=== PATIENT | male | born 1980 | race African-American/Black ===

== ENCOUNTER 2022-04-26 23:27 | Emergency (ER) | payer MEDICAID ==
[~2022-04-26] VITALS: Ht 170.2 cm; Wt 88.6 kg
[~2022-04-26 23:27] MED LIST: BISM-64 PO; OMEP20TA43 PO
[2022-04-26] MEDS ORDERED: fentaNYL/PF 50MCG/1 ML 2ML syringe IV ONE (23:35)
[2022-04-26] MEDS ORDERED: propofol 10mg/ml 20ml vial IV ONE (23:35)
[2022-04-27] MEDS ORDERED: ondansetron/PF 4mg/2ml inj IV ONE
[2022-04-27] MEDS ORDERED: HYDR-3965 PO ×2 (00:20→01:18)
[2022-04-27 00:51] VITALS: BP 131/90
== END 2022-04-27 01:26 | disposition home or self-care (01) ==
LOC: ER 23:27
DX: S82.841A Displaced bimalleolar fracture of right lower leg, initial encounter for closed fracture (principal); S93.04XA Dislocation of right ankle joint, initial encounter; J45.909 Unspecified asthma, uncomplicated; F12.90 Cannabis use, unspecified, uncomplicated; Z72.89 Other problems related to lifestyle; Z79.899 Other long term (current) drug therapy; Y08.89XA Assault by other specified means, initial encounter; Y93.89 Activity, other specified; Y92.89 Other specified places as the place of occurrence of the external cause; Y99.8 Other external cause status
CPT/HCPCS: 27810; 73600; 99285; J3010; 94760; 99152

== ENCOUNTER 2023-01-09 05:25 | Emergency (ER) | payer MEDICAID ==
--- NOTE | 2023-01-09 05:50 | NUR ---
ATTMEPTD TO CALL PT TO BE TRIAGED. PT NOT IN LOBBY. PT SEENON SECURTIRY CAMERA PICKING UP BELONGINGS AND SCOOTER AND LEAVING OUT OF THE LOBBY. PT AMBULATED WITH EVEN, STEADY GAIT WHILE PUSHING SCOOTER ON CAMERA.
== END 2023-01-09 07:16 | disposition left against medical advice (07) ==
LOC: ER 05:25
DX: M79.646 Pain in unspecified finger(s) (principal); Z53.21 Procedure and treatment not carried out due to patient leaving prior to being seen by health care provider

== ENCOUNTER 2023-03-22 11:50 | Outpatient (CLI) | payer MEDICAID ==
[2023-03-22 12:45] LABS: BASOPHILS # (AUTO) 0.1 X10'3 (0-0.2); BASOPHILS % (AUTO) 0.9 % (0-1); EOSINOPHILS # (AUTO) 0.3 X10'3 (0-0.9); HEMATOCRIT 44.7 % (42.0-52.0); HEMOGLOBIN 14.6 g/dl (14.0-17.9); LYMPHOCYTES # (AUTO) 3.7 X10'3 (1.1-4.8); MEAN CORPUSCULAR HEMOGLOBIN 29.6 PG (27.0-31.0); MEAN CORPUSCULAR HGB CONC 32.6 g/dL (33.0-36.5); MEAN CORPUSCULAR VOLUME 90.7 FL (78-98); MEAN PLATELET VOLUME 7.6 FL (7.4-10.4); MONOCYTES # (AUTO) 0.7 X10'3 (0-0.9); MONOCYTES % (AUTO) 8.3 % (2-12); NEUTROPHILS # (AUTO) 3.8 X10'3 (1.8-7.7); NEUTROPHILS % (AUTO) 44.8 % (42-75); PLATELET COUNT 424 X10'3 (140-440); RED BLOOD COUNT 4.93 X10'6 (4.70-6.10); RED CELL DISTRIBUTION WIDTH 14.2 % (11.5-14.5); WHITE BLOOD COUNT 8.5 X10'3 (4.5-11.0)
[2023-03-22 13:00] LABS: ALANINE AMINOTRANSFERASE 44 U/L (12-78); ALBUMIN 3.7 G/DL (3.4-5.0); ALBUMIN/GLOBULIN RATIO 0.9 (1.1-1.5); ALKALINE PHOSPHATASE 57 IU/L (46-116); ANION GAP 9 (8-16); ASPARTATE AMINO TRANSFERASE 29 U/L (10-37); BILIRUBIN,TOTAL 0.5 MG/DL (0.1-1.0); BLOOD UREA NITROGEN 15 MG/DL (7-18); BUN/CREATININE RATIO 12.8 (10.0-20.0); CALCIUM 9.1 MG/DL (8.5-10.1); CHLORIDE 105 MMOL/L (99-107); CHOLESTEROL 205 MG/DL (0-200); CREATININE 1.17 MG/DL (0.60-1.10); FREE T4 (FREE THYROXINE) 0.78 NG/DL (0.73-1.40); GLUCOSE 104 MG/DL (70-104); HDL CHOLESTEROL 68 MG/DL (35-60); LDL CHOLESTEROL 116 MG/DL (50-100); POTASSIUM 4.1 MMOL/L (3.5-5.1); SODIUM 137 MMOL/L (135-145); THYROID STIMULATING HORMONE 1.56 ulU/ml (0.34-4.50); TOTAL CARBON DIOXIDE 22.9 MMOL/L (24-32); TOTAL PROTEIN 7.6 G/DL (6.4-8.2); TRIGLYCERIDES 47 MG/DL (20-135); eGFR 82 ML/MIN
[2023-03-22 13:06] LABS: HEMOGLOBIN A1C 5.3 % (4.5-6.2)
== END 2023-03-22 23:59 | disposition home or self-care (01) ==
LOC: LAB 11:50
PROVIDERS: ATTEND Physician Assistant
DX: Z13.1 Encounter for screening for diabetes mellitus (principal); Z13.220 Encounter for screening for lipoid disorders; I10 Essential (primary) hypertension; K21.9 Gastro-esophageal reflux disease without esophagitis; Z68.28 Body mass index [BMI] 28.0-28.9, adult
CPT/HCPCS: 36415; 80053; 80061; 82306; 83036; 84439; 84443; 85025

== ENCOUNTER 2024-03-15 03:57 | Emergency (ER) | payer MEDICAID ==
[~2024-03-15] VITALS: Ht 170.2 cm; Wt 91.7 kg
[2024-03-15 04:31] LABS: STREP A SCREEN POSITIVE (Neg)
[2024-03-15] MEDS: acetaminophen 1,000mg/100ml IV 100 ML IV ONE (04:46)
[2024-03-15] MEDS: normal saline 1000ml 1,000 ML IV ONE (04:46)
[2024-03-15] MEDS: dexamethasone sod phosphate 10mg/ml inj IV STA (04:46)
[2024-03-15] MEDS: ketorolac trometh 15mg/ml vial 15 MG/ML ML IV ONE (04:47)
[2024-03-15] MEDS: piperacillin/tazo 3.375gm/50ml 50 ML IV ONE (05:17)
[2024-03-15] MEDS ORDERED: LIDO15SO9 PO (05:21)
[2024-03-15] MEDS ORDERED: AMOX-419 PO (05:21)
[2024-03-15 05:50] VITALS: BP 142/86; PULSE 80; RESP 18; TEMP 100; O2SAT 99
== END 2024-03-15 05:52 | disposition home or self-care (01) ==
LOC: ER 03:58
DX: J02.0 Streptococcal pharyngitis (principal); J45.909 Unspecified asthma, uncomplicated; F12.90 Cannabis use, unspecified, uncomplicated; Z72.9 Problem related to lifestyle, unspecified; Z20.822 Contact with and (suspected) exposure to COVID-19
CPT/HCPCS: 36415; 87502; 87503; 87811; 87880; 96365; 96375; 99284; J0131; J1100; J1885; J2543; J7030

== ENCOUNTER 2024-07-13 06:46 | Outpatient (CLI) | payer MEDICAID ==
[~2024-07-13 06:46] MED LIST changes: +LIDO15SO9 PO
--- NOTE | 2024-07-13 07:32 | RADIOLOGY REPORT ---
ANGIO ARTHROGRAM (A) Date: 07/13/2024 07:21 AM Clinical History: RIGHT SHOULDER PAIN Comparison: None Procedure: Verbal and written informed consent were obtained from the patient for the procedure of right shoulde r fluoroscopically guided arthrogram, after the procedure, risks, and benefits of the procedure were explained to the patient. Risks include bleeding, infection, reaction to injected medications, and damage to surrounding anatomic structures. The patient's questions were answered. The patient's mos t recent medical history was reviewed. A time out was performed to verify the patient's name, date of , and correct location of the pro cedure, prior to initiation of the procedure. The patient was placed supine on the fluoroscopic table and the area overlying the right shoulder wa s prepped and draped in the usual sterile fashion. Approximately 7 ml of buffered 1% lidocaine were infused for local anesthesia. The patient tolerated the procedure well. There were no immediate complications. Home-care instruct ions were reviewed with the patient prior to the patient's discharge from the fluoroscopy suite. The patient verbally affirmed understanding of these instructions. Impression: Technically successful fluoroscopically guided right shoulder arthrogram. The patient was transport ed to MRI for further imaging at the completion of the procedure. Procedure by Dr. Black
--- NOTE | 2024-07-13 09:15 | RADIOLOGY REPORT ---
CLINICAL INDICATION: PAIN IN RIGHT SHOULDER COMPARISON: None TECHNIQUE: Multiplanar, multi-sequence MRI of the right shoulder was performed after the uneve ntful intra-articular administration of gadolinium solution. Contrast: Please see separate procedure report. INTERPRETATION: Glenohumeral joint: The joint is appropriately distended with intra-articular contrast. There is no f racture or bone marrow edema. The alignment is normal. There is no focal cartilage defect. Subchondra l cystsin the posterior humeral head. Acromioclavicular joint: The acromoclavicular joint is normal in appearance. Rotator cuff and bursae: Supraspinatus and infraspinatus tendinosis. Partial-thickness articular omar face tears of supraspinatus and infraspinatus. Subscapularis and teres minor tendons are intact. The re is no muscle atrophy. There is no subacromial subdeltoid bursal fluid. Biceps tendon and glenoid labrum: The biceps tendon is normal in appearance. There is a tear of the a nterior inferior to anterior superior glenoid labrum. IMPRESSION: 1. Supraspinatus and infraspinatus tendinopathy and partial-thickness articular surface tears of both tendons. No full-thickness rotator cuff tear. 2. Tear of the anterior superior to anterior inferior glenoid labrum.
== END 2024-07-13 23:59 | disposition home or self-care (01) ==
LOC: RAD 06:46
PROVIDERS: ATTEND Physician Assistant Surgical
DX: M25.511 Pain in right shoulder (principal); S43.431A Superior glenoid labrum lesion of right shoulder, initial encounter; M75.101 Unspecified rotator cuff tear or rupture of right shoulder, not specified as traumatic; X58.XXXA Exposure to other specified factors, initial encounter; Y93.89 Activity, other specified; Y92.89 Other specified places as the place of occurrence of the external cause; Y99.8 Other external cause status
CPT/HCPCS: 23350; 73222; 77002; A9575